=== PATIENT | male | born 1935 | race Caucasian/White ===

== ENCOUNTER 2016-07-02 23:08 | Inpatient (IN) | payer MEDICARE, OTHER ==
--- NOTE | ~2016-07-02 | DS ---
Discharge Summary [facility] [address] [facility] [place] [address] NAME: LOURDES YODER : 37 STATUS : DIS IN PAT#: [id number] AGE: 81 ADM/REG DATE : 07/03/16 MR#: [id number] REPORT SERV DATE: 07/09/16 DICTATED BY: JAYESH GRIFFIN DATE: 07/08/16 REPORT STATUS : Draft TRANSCRIBED BY: MODJayme DATE: 07/08/16 ADMISSION DATE: 07/03/2016 DISCHARGE DATE: 07/08/2016 DISCHARGE DIAGNOSES: 1. Left upper lobe lung mass, most likely stage III lung cancer. 2. Myeloproliferative syndrome, followed by Dr. Maldonado Benson. 3. Advanced chronic obstructive pulmonary disease that is O2 dependent. 4. Hypertension. 5. Benign prostatic hypertrophy. 6. Anxiety. 7. Chronic pain syndrome. 8. History of prior cerebrovascular accident. 9. Chronic hypoxic and hypercapnic respiratory failure, currently stable. CONSULTANTS DURING THIS HOSPITALIZATION: Dr. Yasmani Curtis of Pulmonology. INVASIVE PROCEDURES DONE DURING THIS HOSPITALIZATION: None. BRIEF HISTORY OF PRESENT ILLNESS: The patient is an 81-year-old white male with chronic comorbidities, presented with congestion, shortness of breath, wheezing, and cough, so he was admitted. For detailed history and physical exam, please see note dictated by Dr. Giovanni Bryant on 07/03/2016. HOSPITAL COURSE: This patient was admitted from the emergency room because on a CTA due to his shortness of breath, it revealed that he had a right upper lobe mass. He was given aggressive nebulizing treatment. Initially, it was thought that he had pneumonia, so he was given IV antibiotics. Blood cultures remained negative. He was initially also on IV steroids and those were discontinued. Dr. Curtis saw the patient in consultation and discussed with the patient that this may be lung cancer. Initially, the patient decided that he wanted to have his bronchoscopy done, but after discussing further with the patient and the fact that he may be on a ventilator post bronchoscopy and it will be difficult to wean him because of his advanced COPD; plus, if this was lung cancer, he would not be a candidate for any other aggressive therapy except targeted therapies by oral medications. The patient understood and agreed that he did not want to pursue further workup for his lung mass. At that time, it was decided that he could go home with hospice. The patient and met with hospice, and based on hospice philosophy, it was thought that the patient would not be able to be treated for his myeloproliferative syndrome as well. The patient decided against going home with hospice and said he would call them when he needed them. He is going home today with home O2, home health care, and physical therapy and continuing with other medical treatment for his other comorbidities. I have discussed at length with the patient and the at the bedside that hospice could be asked to see him at any point when the patient and family decides. Otherwise, he has remained stable and is being discharged in stable condition. DISCHARGE DISPOSITION: Home. Discharge Summary [id number] [place]. [address] NAME: LOURDES YODER : 37 STATUS : DIS IN PAT#: [id number] AGE: 81 ADM/REG DATE : 07/03/16 MR#: [id number] REPORT SERV DATE: 07/09/16 DICTATED BY: JAYESH GRIFFIN DATE: 07/08/16 REPORT STATUS : Draft TRANSCRIBED BY: NATE DATE: 07/08/16 DISCHARGE ACTIVITY: As tolerated. DISCHARGE DIET: Low-sodium diet. DISCHARGE MEDICATIONS: Norvasc 5 mg p.o. twice daily, coenzyme Q10 of 100 mg once every morning, Lexapro 20 mg once daily, Flonase two sprays each nostril once daily, Claritin 10 mg p.o. once daily, multivitamins one tablet p.o. daily, fish oil 100 mg p.o. daily, Flomax 0.4 mg p.o. every morning, Spiriva one capsule inhalation once daily, trazodone 50 to 100 mg p.o. once at bedtime, Klonopin 0.5 mg to 1 mg at bedtime p.r.n. for anxiety and as needed, albuterol one neb p.r.n. for shortness of breath, Symbicort 160/4.5 two puffs twice daily, hydrocodone 10/325 one tablet four times daily p.r.n. for breakthrough pain, and Opana ER 15 mg p.o. every morning. DISCHARGE FOLLOWUP: With Dr. Francesca Hatfield as scheduled previously. With Dr. Rosa Maria Ridley as needed. More than 30 minutes spent planning this patient's discharge, reconciling medications, writing prescriptions, discussing hospital care, follow up with the patient and the at the bedside, and documenting this discharge. FABBY/NATE Jayesh Griffin M.D. / [id number] CC: Jose Wilson M.D. Yune-gill Jeong, M.D.
--- NOTE | ~2016-07-02 | CN ---
Consultation Report [facility] [address] [place]. [address] NAME: LOURDES PUCKETT : 37 STATUS : ADM IN PAT#: [id number] AGE: 81 ADM/REG DATE : 07/03/16 MR#: [id number] REPORT SERV DATE: 07/03/16 DICTATED BY: DOUGLAS VIZCARRA DATE: 07/03/16 REPORT STATUS : Draft TRANSCRIBED BY: MODL DATE: 07/03/16 CONSULTATION DATE OF CONSULTATION: 07/03/2016 CHIEF COMPLAINT: Dyspnea and abnormal CT findings. HISTORY OF PRESENT ILLNESS: Mr. Lourdes Puckett is a cachectic-appearing 81-year-old white male with a past medical history significant for end-stage COPD, chronic respiratory failure and tobacco dependency, who presented to [facility] Emergency Room with complaints of worsening shortness of breath of two to three days' duration. It should be noted that Mr. Puckett was hospitalized as recently as 01/2016 when he was treated for an exacerbation of COPD as well as pneumonia. The patient has done fairly well as an outpatient given his advanced age and significant pulmonary comorbidities. Mr. Puckett is followed for his outpatient pulmonary needs by Dr. Hatfield. He is on a pulmonary regimen of albuterol, Symbicort, and Spiriva of which he is compliant. Unfortunately, the patient continues to smoke cigarettes. He has smoked approximately a pack a day for roughly 70 years. He does have some symptomatology consistent with some degree of sleep apnea. He has never undergone formal assessment for this. He is on chronic oxygen supplementation at 2 to 3 L. He describes his exercise tolerance as being quite limited, being only able to ambulate around the house before experiencing some degree of shortness of breath. Again, the patient was hospitalized as recently as January when he was treated for a pneumonia and exacerbation of COPD. He was seen by Dr. Heather Victor during this hospitalization. He did have issues with hypercarbia during this time and was eventually transferred to the [facility], where he received some BiPAP therapy. He did eventually improve and transition to home. He did not follow up with his outpatient exploration engineer. More recently, the patient began to develop worsening shortness of breath and eventually presented to [facility] Emergency Room for further assessment. Upon arrival, the patient was found to be normotensive and afebrile. He had oxygen saturation of 94% on 3 L. Initial blood work revealed a white blood cell count of 14,000. His BNP was elevated at 211.9. Creatinine was within normal limits. He did eventually undergo a CTA of the chest, which revealed an irregular mass within the left upper lobe, measuring at its largest dimension 2.6 mm. Multiple smaller irregular nodules were appreciated as well. For the aforementioned reasons, he has been referred to the Pulmonary Service for further assessment. Currently, the patient's main pulmonary complaint is shortness of breath. It is worse on exertion and relieved by rest. He denies any worsening wheezing in his chest. He is not hemoptysizing. He has had recent pneumonia. The patient currently denies murmurs, angina, or palpitations. He denies any orthopnea or Consultation Report [address] [address] NAME: LOURDES PUCKETT : 37 STATUS : ADM IN [facility]#: [id number] AGE: 81 ADM/REG DATE : 07/03/16 MR#: [id number] REPORT SERV DATE: 07/03/16 DICTATED BY: DOUGLAS VIZCARRA DATE: 07/03/16 REPORT STATUS : Draft TRANSCRIBED BY: NATE DATE: 07/03/16 paroxysmal nocturnal dyspnea. He denies any lower extremity edema. The patient has had about a 5-pound weight loss over the last few weeks. He has had decreased appetite. He has had occasional night sweats. He currently denies any fever, chills, nausea, vomiting, chest pain, abdominal pain, or edema. PAST MEDICAL HISTORY: 1. End-stage COPD with reported FEV1 of 19% of predicted. 2. Chronic hypoxemic respiratory failure. 3. Previous pneumonia. 4. Thrombocytosis. 5. Restless legs syndrome. 6. Diabetes mellitus. 7. Hypertension. PAST SURGICAL HISTORY: 1. Back surgery. 2. Vasectomy. 3. Phimosis with subsequent circumcision. FAMILY HISTORY: The patient denies family history of lung disease. SOCIAL HISTORY: The patient is , with his currently at bedside. He previously worked as a gas truck driver. He also worked where he was exposed to excessive amounts of formaldehyde. Tobacco/alcohol: As previously mentioned, the patient continues to smoke cigarettes. He has smoked approximately a pack a day for a period of 70 years. He denies any recent alcohol or illicit drug use. MEDICATIONS: 1. Albuterol. 2. Amlodipine 5 mg. 3. Symbicort. 4. Klonopin 0.5 mg. 5. Lexapro 20 mg. 6. Hydrocodone 10/325. 7. Loratadine 10 mg. 8. Tamsulosin 0.4 mg. 9. Spiriva. 10.Trazodone 50 mg. ALLERGIES: THE PATIENT HAS KNOWN ALLERGY TO AZITHROMYCIN. REVIEW OF SYSTEMS: Consultation Report [address] [address] NAME: LOURDES PUCKETT : 37 STATUS : ADM IN PAT#: [id number] AGE: 81 ADM/REG DATE : 07/03/16 MR#: [id number] REPORT SERV DATE: 07/03/16 DICTATED BY: DOUGLAS VIZCARRA DATE: 07/03/16 REPORT STATUS : Draft TRANSCRIBED BY: NATE DATE: 07/03/16 A complete review of systems was performed with the pertinent positives and negatives contained within the body of the HPI. PHYSICAL EXAMINATION: VITAL SIGNS: Blood pressure is 143/64, heart rate is 89, T-max is 97.7, respiratory rate is 20, SpO2 is 95% on 3 L nasal cannula. GENERAL: The patient is a pleasant, well-nourished/well-developed male, who is not currently exhibiting any signs of acute distress. SKIN: Skin with appropriate texture and turgor. No rashes, lesions, or ulcers. Nails are clear without cyanosis or clubbing. HEENT: Head: Skull is normocephalic/atraumatic. Facies symmetric. No masses or lesions. Eyes: Sclera anicteric. Conjunctiva pink without exudates. Extraocular movements intact. Pupils are equal, round, reactive to light. Ears: Auricles and tragus without pain to palpation. Hearing is grossly intact. Nose: Bilateral nasal patency. Sinuses without tenderness upon palpation. Throat: Poor dentition and poor repair. Lips, oral mucosa, tongue, palate, and pharynx pink and moist without lesions. Uvula rises equally on phonation. Tongue midline without deviation. NECK: Neck supple. Trachea midline. No cervical lymphadenopathy appreciated. THORAX/LUNGS: Thorax is symmetric with equal chest rise. Very diminished breath sounds throughout. CARDIOVASCULAR: Regular rate and rhythm. No murmurs, rubs, or gallops. Anterior chest without thrills, heaves, or lifts. ABDOMEN: Soft. Non-distended, non-tender. Active bowel sounds in all four quadrants. No hepatosplenomegaly noted. PERIPHERAL VASCULAR: No edema. No varicosities, stasis changes, open sores, ulcerations, or phlebitis. 2+ pulses in radial and dorsalis pedis. MUSCULOSKELETAL: Full AROM and PROM in all joints. No evidence of erythema, deformity, or crepitus. NEUROLOGIC: CN II - XII grossly intact. Good muscle bulk and tone bilaterally. Strength 5/5 throughout. PSYCHIATRIC: Patient demonstrates good judgment and insight. Pt is A&O x 3. ACCESSORY DATA: Reveals a white blood cell count of 11,600; hemoglobin and hematocrit are 8.4 and 27.7; platelets are 1109. CT scan reveals no evidence of PE. There is an irregular mass within the left upper lobe. There are multiple additional smaller irregular nodules scattered within the left upper lobe. Small bilateral pleural effusions are appreciated. Mediastinal lymphadenopathy is noted as well. IMPRESSION: 1. Left upper lobe infiltrate/mass, measuring 2.6 mm, concerning for malignancy. 2. Pulmonary nodules. 3. End-stage chronic obstructive pulmonary disease with mild exacerbation. 4. Acute on chronic hypoxemic-hypercapnic respiratory failure. 5. Tobacco dependency/complicated. Consultation Report [address] [address] NAME: LOURDES PUCKETT : 37 STATUS : ADM IN [facility]#: [id number] AGE: 81 ADM/REG DATE : 07/03/16 MR#: [id number] REPORT SERV DATE: 07/03/16 DICTATED BY: DOUGLAS VIZCARRA DATE: 07/03/16 REPORT STATUS : Draft TRANSCRIBED BY: MODL DATE: 07/03/16 6. Bilateral pleural effusions. 7. DNR. PLAN: 1. At this time, the patient has already eaten today. We will tentatively plan for bronchoscopy for more diagnostic information. We recommend continuing on Levaquin at this time. We will check a sputum for Gram stain and culture. 2. Again, the infiltrate and pulmonary nodules are concerning for malignancy. At this time, he would be considered a poor candidate for invasive treatments. I did speak with the family about this. They do wish to proceed with biopsy. 3. In regard to the patient's exacerbation of COPD, we will adjust his steroids accordingly and place him on a full armamentarium of nebulized medications. 4. In regard to the patient's acute on chronic hypoxemic-hypercapnic respiratory failure, we will continue to support him on BiPAP at hour of sleep. Before discharge, we will assess his willingness or need for noninvasive positive pressure ventilation. 5. In regard to the patient's continuing tobacco abuse, I spent greater than 10 minutes discussing the necessity of smoking cessation. We will revisit this throughout his hospitalization. 6. In regard to the patient's bilateral pleural effusions, there seems to be some chronic nature to these. We will watch these moving forward. 7. I did speak at length about the patient's code status, and he does not wish aggressive resuscitative efforts. We will reflect this within the chart and make his status DNR. The aforementioned impression and plan has been discussed with Dr. Cooper, who will follow further recommendations. We thank you for this consult and look forward to participating in the care of Mr. Lourdes Puckett. GBS/MODL Douglas Vizcarra PA-C / [id number] CC: Jose Grover M.D.
--- NOTE | ~2016-07-02 | HP ---
History And Physical [id number] [place]. [address] NAME: LOURDES PUCKETT : 37 STATUS : REG ER PAT#: [id number] AGE: 81 ADM/REG DATE : 07/02/16 MR#: [id number] REPORT SERV DATE: 07/03/16 DICTATED BY: MARGE VILLELA DATE: 07/03/16 REPORT STATUS : Draft TRANSCRIBED BY: MODL DATE: 07/03/16 DATE OF ADMISSION: 07/02/2016 POINT OF ENTRY: [facility] Emergency Department. PRIMARY ONCOLOGIST: Quinn Benson M.D. PRIMARY EMBOSSOGRAPH OPERATOR: James Hatfield M.D. CHIEF COMPLAINT: Shortness of breath and cough. HISTORY OF PRESENT ILLNESS: Mr. Puckett is an 81-year-old gentleman with history of COPD on chronic 3 L by nasal cannula, myeloproliferative disorder followed by Dr. Benson, chronic pain on chronic narcotics as well as hypertension, who presents to the emergency room today with a two-day history of progressive worsening shortness of breath with associated cough, sputum production, and wheezing. states that his breathing has been steadily worsening for the past week; however, it acutely worsened on Wednesday after he received two units of packed red blood cell transfusion at [facility]. His symptoms primarily of increased cough with sputum production with associated chest congestion and wheezing. He denies any recent fevers, night sweats, chills, chest pain, palpitations, abdominal pain, nausea, vomiting, diarrhea, constipation, dysuria, melena, or hematochezia. Initial evaluation in the emergency department notable for a CTA of the chest that was negative for PE or pneumonia, but is concerning for a left upper lobe and lingular mass concerning for neoplasm. ABG showed acute on chronic hypercarbic and hypoxic respiratory failure, the patient was placed on BiPAP and admitted to the Hospitalist Service. The patient recently discontinued his Eliquis per the direction of Dr. Benson for a history of pulmonary embolism in January 2016. PREVIOUS MEDICAL HISTORY: 1. COPD, on 3 L nasal cannula. 2. Chronic hypercarbic and hypoxic respiratory failure. 3. Hypertension. 4. Recent PE, no longer on anticoagulation. 5. Myeloproliferative disorder with chronic leukocytosis and thrombocytosis. 6. Chronic iron-deficiency anemia. 7. History of colonic polyps. 8. Chronic pain on chronic narcotics. 9. History of prior cerebrovascular accident. 10.Restless legs syndrome. SURGICAL HISTORY: History And Physical [address] [address] NAME: LOURDES PUCKETT : 37 STATUS : REG ER PAT#: [id number] AGE: 81 ADM/REG DATE : 07/02/16 MR#: [id number] REPORT SERV DATE: 07/03/16 DICTATED BY: MARGE VILLELA DATE: 07/03/16 REPORT STATUS : Draft TRANSCRIBED BY: NATE DATE: 07/03/16 1. Vasectomy. 2. Circumcision. 3. Back surgery. ALLERGIES: TO WELLBUTRIN. HOME MEDICATIONS: 1. Albuterol one nebulization p.r.n. 2. Amlodipine 5 mg b.i.d. 3. Symbicort two puffs inhalation b.i.d. 4. Klonopin 0.5 mg to 1 mg q.h.s. 5. Klonopin 0.5 mg daily. 6. CoQ10 100 mg daily. 7. Lexapro 20 mg daily. 8. Flonase nasal spray two sprays nasal daily. 9. [place] 10/325 mg one tablet q.i.d. 10.Loratadine 10 mg daily. 11.Multivitamin one tab daily. 12.[place]-3 fatty acid. 13.Fish oil 1000 mg daily. 14.Opana ER 15 mg daily. 15.Flomax 0.4 mg daily. 16.Spiriva one cap inhalation daily. 17.Trazodone 100 mg q.h.s. SOCIAL HISTORY: He denies any tobacco, alcohol, or illicits. FAMILY MEDICAL HISTORY: Notable for diabetes and coronary artery disease as well as father with history of stroke. LABS AND IMAGIN. White count 14.2, hemoglobin is 8.7, hematocrit 29.5, and platelet count is 1,123,000. 2. Sodium is 144, potassium 4.1, chloride 108, carbon dioxide 39, BUN 14, creatinine 0.67, glucose is 114, calcium is 8.9, protein is 7.3, albumin is 2.8, bilirubin is 0.2, ALT is 18, AST 16, and alkaline phosphatase is 60. 3. Troponin less than 0.02. BNP is 212. 4. ABG; pH is 7.25, pCO2 is 87, PO2 is 89, bicarb is 38, and saturating 96% on 4 L by nasal cannula. 5. EKG per my review shows normal sinus rhythm with left axis deviation, otherwise, no evidence of any acute ischemia or infarction. 6. Chest x-ray per my review shows no acute cardiopulmonary abnormality. It does show COPD type changes with flattened diaphragms and hyperinflation. 7. CTA of the chest is negative for PE, but does show a left upper lobe and lingular mass as well as evidence of metastatic lymphadenopathy. PHYSICAL EXAMINATION: VITAL SIGNS: Temperature is 98.3 degrees Fahrenheit, pulse is 93, respirations 24, History And Physical [id number] [place]. [address] NAME: LOURDES PUCKETT : 37 STATUS : REG ER PAT#: [id number] AGE: 81 ADM/REG DATE : 07/02/16 MR#: [id number] REPORT SERV DATE: 07/03/16 DICTATED BY: MARGE VILLELA DATE: 07/03/16 REPORT STATUS : Draft TRANSCRIBED BY: NATE DATE: 07/03/16 saturating 94% on 4 L nasal cannula, and blood pressure 114/56. GENERAL: The patient is awake and alert, in no acute distress. Resting comfortably in bed. He is a chronically ill-appearing, elderly male. Currently on BiPAP, is at bedside. HEENT: Atraumatic and normocephalic. Moist mucous membranes. Pupils are equal, round, reactive to light and accommodation. Extraocular eye movements intact. No scleral icterus. NECK: No jugular venous distention or carotid bruits. CARDIAC: Regular rate and rhythm. No murmurs, rubs, or gallops. Normal S1, S2. LUNGS: He is on BiPAP in no respiratory distress. Does have some inspiratory crackles at bilateral bases about alf up the lung field with some mild wheezes as well. ABDOMEN: Soft, nontender, and nondistended with good bowel sounds. No rebound, guarding, or rigidity. EXTREMITIES: Warm and well perfused. No cyanosis or clubbing or edema. SKIN: Warm and dry. PSYCH: Affect appropriate. NEURO: Alert and oriented x3. Cranial nerves 2 through 12 are grossly intact. Speech is normal. Gait is not assessed. ASSESSMENT AND PLAN: Mr. Puckett is an 81-year-old male with a history of COPD as well as chronic hypercarbic and hypoxic respiratory failure, who presents with worsening shortness of breath, cough, and sputum production. PROBLEM LIST: 1. Acute COPD exacerbation. 2. Acute on chronic hypercarbic and hypoxic respiratory failure. 3. Left upper lobe lung mass. 4. Myeloproliferative disorder. PLAN: 1. Acute COPD exacerbation. We will treat with IV steroids, antibiotics as well as frequent bronchodilators. 2. Acute on chronic hypoxic and hypercarbic respiratory failure. We will continue BiPAP overnight, we will recheck an ABG here in a few hours to ensure that he is correcting his acid-base abnormality. Again aggressive pulmonary toilet with antibiotics, steroids, and bronchodilators. 3. Lung mass. CT of the chest concerning for a lingular and left upper lobe lung mass. We will consult the patient's primary oncologist, Dr. Benson, for assistance. We will likely need some type of biopsy. 4. Myeloproliferative disorder, per Dr. Benson. 5. History of PE. The patient is no longer on Eliquis. CT of the chest here is negative for PE. 6. Chronic pain on chronic narcotics. We will continue the patient's home medications, but hold for sedation. 7. DVT prophylaxis. Lovenox subcutaneous. CODE STATUS: The patient wishes to be full code. History And Physical [address] [address] NAME: LOURDES PUCKETT : 37 STATUS : REG PAT#: [id number] AGE: 81 ADM/REG DATE : 07/02/16 MR#: [id number] REPORT SERV DATE: 07/03/16 DICTATED BY: MARGE VILLELA DATE: 07/03/16 REPORT STATUS : Draft TRANSCRIBED BY: NATE DATE: 07/03/16 BRANDEN/NATE Marge Villela MD / [id number] CC: Rosa Maria Ridley M.D. MD James West M.D.
[2016-07-02 19:09] LABS: BASOPHILS 0.8 %; BASOPHILS ABSOLUTE 0.12 10/3/uL (0.0-0.16); EOSINOPHILS 1.7 %; EOSINOPHILS ABSOLUTE 0.24 10/3/uL (0.0-0.53); ER CBC TAT 0 Hrs 14 Mins; HEMOGLOBIN 8.7 g/dL (13.6-17.8); IMMATURE GRANULOCYTES 0.6 %; IMMATURE GRANULOCYTES ABSOLUTE 0.08 10/3/uL (0.0-0.11); LYMPHOCYTES 11.1 %; LYMPHOCYTES ABSOLUTE 1.58 10/3/uL (0.67-4.30); MEAN CORPUS HGB CONC 29.5 g/dL (32.0-36.0); MEAN PLATELET VOLUME 9.4 fL (9.2-13.0); MONOCYTES 6.5 %; MONOCYTES ABSOLUTE 0.93 10/3/uL (0.21-1.20); NEUTROPHILS 79.3 %; NEUTROPHILS ABSOLUTE 11.28 10/3/uL (2.02-8.40); NUCLEATED RED BLOOD CELLS 0.6 /100WBC (0-0); RBC DISTRIBUTION WIDTH 19.1 % (12.0-16.0); WHITE BLOOD CELLS 14.2 10/3/uL (4.5-10.5)
[2016-07-02 19:14] LABS: HEMATOCRIT 29.5 % (40.0-51.0); MANUAL DIFF NO %; MEAN CORPUSCULAR HEMOGLOB 29.4 pg (26.0-34.0); MEAN CORPUSCULAR VOLUME 99.7 fL (80-100); PLATELET COUNT 1123 10/3/uL (150-400); RED CELL COUNT 2.96 10/6/uL (4.7-6.1)
[2016-07-02 19:16] LABS: A/G RATIO 0.6 (0.7-1.9); ALBUMIN 2.8 G/DL (3.5-5.0); ALKALINE PHOSPHATASE 60 U/L (45-117); BUN (BLOOD UREA NITROGEN) 14 MG/DL (6-23); CALCIUM, SERUM 8.9 MG/DL (8.5-10.4); CHLORIDE, SERUM 101 MMOL/L (96-112); CO2 (CARBON DIOXIDE) 39 MMOL/L (24-34); CREATININE 0.67 MG/DL (0.70-1.30); GFR AFRICAN AMERICAN 105 ML/MIN (>=60); GFR NON AFRICAN AMERICAN 91 ML/MIN (>=60); GLOBULIN 4.4 G/DL (2.5-4.1); GLUCOSE, SERUM 114 MG/DL (60-99); POTASSIUM, SERUM 4.1 MMOL/L (3.5-5.3); SGOT(AST) 16 U/L (5-40); SGPT(ALT) 18 U/L (5-65); SODIUM, SERUM 144 MMOL/L (135-148); TOTAL BILIRUBIN 0.2 MG/DL (0-1.2); TOTAL PROTEIN 7.2 G/DL (6.0-8.5)
[2016-07-02 19:38] LABS: ANISOCYTOSIS 1+ (5-10/OIF) (0-5/OIF); POLYCHROMASIA 1+ (2-5/OIF) (0-1/OIF)
[2016-07-02 19:39] LABS: BASOPHILIC STIPPLING 1+ (2-5/OIF) (0-1/OIF)
[2016-07-02 21:26] LABS: BE (BASE EXCESS) 8.6 MEQ/L (0 +/- 2.5); CARBOXYHEMOGLOBIN 1.7 % (0-3); DEVICE NC; HCO3 (ACTUAL BICARBONATE) 37.7 MEQ/L (23-27); HEMOBLOGIN CONTENT 8.9 G/DL (14-18); INSTRUMENT SERIAL # 8087; METHEMOGLOBIN 0.6 % (0-3); O2 CONTENT 11.9 VOL% (18-24); OPERATOR ID 17537; PCO2 (CO2 TENSION) 87 MMHG (35-45); PO2 (O2 TENSION) 89 MMHG (79-93); SAMPLE Arterial; pH 7.25 (7.37-7.43)
[2016-07-02 22:04] LABS: TROPONIN I <0.02 NG/ML (<0.05)
[~2016-07-02 23:08] MED LIST: ADVAIR250 INH; AMB10 PO; AMB5 PO; ASAB; ASAB PO; CLARIT10 PO; DOLOPHINE5 MG PO; DOX10 PO; ELIQUIS 5 MG TAB5 MG PO; FLOMAX4 PO; FLONASE NAS; HALF81 PO; HYDREA PO; KDUR20 PO; KLONO1; KLONO1 PO; KLONO5 PO; LEVAQUIN750 MG PO; LEXAPRO10 PO; LIPITOR80 MG PO; LORTAB10 PO; MEGA RED KRILL OIL PO; MELA3 PO; METHATAB5B PO; MULTIPLE VIT PO; MULTIVITAMI1 PO; NASONEX NAS; NICODERM C14 MG/24 H TOP; NICORETTE ST2 MG; NORCO1 TAB PO; NORV5 PO; OPANA ER15 MG PO; P10 PO; P20 PO; PLAVIX PO; PROAIR HFA INH; PROTONIX PO; PROVENTSOL INH; QVAR40 MC1 IN; RESUME HOME MEDS; SINGULAIR1 PO; SPIRIVA INH; SYMBICORT 160/41 INH INH; TAMIFLU PO; TRAZ100 PO; TRAZ50 PO; ZITHROMAX500 MG PO; [UNRECOGNIZED DRUG - OTHER] PO
[2016-07-02] MEDS ORDERED: SYMBICORT 160/41 INH INH (23:19)
[2016-07-02] MEDS ORDERED: NORV5 PO (23:19)
[2016-07-02] MEDS ORDERED: KLONO5 PO ×2 (23:22→23:23)
[2016-07-02] MEDS ORDERED: LEXAPRO20 PO (23:23)
[2016-07-02] MEDS ORDERED: CO Q-10100 MG PO (23:23)
[2016-07-02] MEDS ORDERED: FLONASE NAS (23:23)
[2016-07-02] MEDS ORDERED: CLARIT10 PO (23:25)
[2016-07-02] MEDS ORDERED: MULTIVIT/MIN PO (23:25)
[2016-07-02] MEDS ORDERED: NORCO1 TAB PO (23:25)
[2016-07-02] MEDS ORDERED: FISH-EPA1000 MG PO (23:26)
[2016-07-02] MEDS ORDERED: FLOMAX4 PO (23:27)
[2016-07-02] MEDS ORDERED: ALBUTEROL0.083 % INH (23:27)
[2016-07-02] MEDS ORDERED: OPANA ER15 MG PO (23:27)
[2016-07-02] MEDS ORDERED: TRAZ50 PO (23:28)
[2016-07-02] MEDS ORDERED: SPIRIVA INH (23:28)
[2016-07-03 01:23] LABS: CARBOXYHEMOGLOBIN 1.5 % (0-3); HCO3 (ACTUAL BICARBONATE) 38.1 MEQ/L (23-27); INSTRUMENT SERIAL # 8087; METHEMOGLOBIN 0.6 % (0-3); O2 CONTENT 11.6 VOL% (18-24); OPERATOR ID 17537; PCO2 (CO2 TENSION) 68 MMHG (35-45); PO2 (O2 TENSION) 65 MMHG (79-93); SAMPLE Arterial; pH 7.37 (7.37-7.43)
[2016-07-03 01:24] LABS: BIPAP 15/8 cm.H2O
[2016-07-03 05:32] LABS: BASOPHILS 0.3 %; BASOPHILS ABSOLUTE 0.04 10/3/uL (0.0-0.16); EOSINOPHILS 0.2 %; EOSINOPHILS ABSOLUTE 0.02 10/3/uL (0.0-0.53); HEMATOCRIT 27.7 % (40.0-51.0); HEMOGLOBIN 8.4 g/dL (13.6-17.8); IMMATURE GRANULOCYTES 0.2 %; IMMATURE GRANULOCYTES ABSOLUTE 0.02 10/3/uL (0.0-0.11); LYMPHOCYTES 5.9 %; LYMPHOCYTES ABSOLUTE 0.69 10/3/uL (0.67-4.30); MEAN CORPUS HGB CONC 30.3 g/dL (32.0-36.0); MEAN CORPUSCULAR HEMOGLOB 29.3 pg (26.0-34.0); MEAN PLATELET VOLUME 9.7 fL (9.2-13.0); MONOCYTES 0.6 %; MONOCYTES ABSOLUTE 0.07 10/3/uL (0.21-1.20); NEUTROPHILS 92.8 %; NEUTROPHILS ABSOLUTE 10.79 10/3/uL (2.02-8.40); RBC DISTRIBUTION WIDTH 18.6 % (12.0-16.0); RED CELL COUNT 2.87 10/6/uL (4.7-6.1); WHITE BLOOD CELLS 11.6 10/3/uL (4.5-10.5)
[2016-07-03 05:34] LABS: BUN (BLOOD UREA NITROGEN) 17 MG/DL (6-23); CALCIUM, SERUM 8.8 MG/DL (8.5-10.4); CHLORIDE, SERUM 100 MMOL/L (96-112); CO2 (CARBON DIOXIDE) 35 MMOL/L (24-34); CREATININE 0.65 MG/DL (0.70-1.30); GFR AFRICAN AMERICAN 106 ML/MIN (>=60); GFR NON AFRICAN AMERICAN 92 ML/MIN (>=60); POTASSIUM, SERUM 4.5 MMOL/L (3.5-5.3); SODIUM, SERUM 141 MMOL/L (135-148)
[2016-07-03 05:36] LABS: GLUCOSE, SERUM 201 MG/DL (60-99)
[2016-07-03 05:37] LABS: MANUAL DIFF NO %; MEAN CORPUSCULAR VOLUME 96.5 fL (80-100); PLATELET COUNT 1109 10/3/uL (150-400)
[2016-07-03 05:57] LABS: ANISOCYTOSIS 1+ (5-10/OIF) (0-5/OIF); GIANT PLATELET OCC; STOMATOCYTES 1+ (3-10/OIF) (0-2/OIF)
[2016-07-03 07:10] LABS: ASCORBIC ACID (UR NOT ORDER) 20 (NEG); BILIRUBIN, URINE NEGATIVE (NEG); KETONE, URINE NEGATIVE (NEG); LEUKOCYTE ESTERASE(NOT OR NEG (NEG); WBC (NOT ORDERED) (RFLEX) 1 (0-5)
[2016-07-03 10:29] LABS: PROCALCITONIN 9.27 ng/mL (<0.5)
[2016-07-03 14:34] LABS: FERRITIN 57 NG/ML (26-388); FOLATE 28.3 NG/ML (>5.2); FREE T4 1.23 NG/DL (0.76-1.46); IRON BINDING CAPACITY 212 MCG/DL (250-450)
[2016-07-04 07:19] LABS: A/G RATIO 0.7 (0.7-1.9); ALBUMIN 2.6 G/DL (3.5-5.0); ALKALINE PHOSPHATASE 47 U/L (45-117); BUN (BLOOD UREA NITROGEN) 19 MG/DL (6-23); CALCIUM, SERUM 8.5 MG/DL (8.5-10.4); CHLORIDE, SERUM 107 MMOL/L (96-112); CO2 (CARBON DIOXIDE) 32 MMOL/L (24-34); CREATININE 0.71 MG/DL (0.70-1.30); GFR AFRICAN AMERICAN 103 ML/MIN (>=60); GFR NON AFRICAN AMERICAN 89 ML/MIN (>=60); GLOBULIN 3.7 G/DL (2.5-4.1); GLUCOSE, SERUM 112 MG/DL (60-99); PHOSPHORUS, SERUM 2.2 MG/DL (2.5-4.5); POTASSIUM, SERUM 3.6 MMOL/L (3.5-5.3); SGOT(AST) 17 U/L (5-40); SGPT(ALT) 14 U/L (5-65); SODIUM, SERUM 145 MMOL/L (135-148); TOTAL BILIRUBIN 0.2 MG/DL (0-1.2); TOTAL PROTEIN 6.3 G/DL (6.0-8.5)
[2016-07-04 07:27] LABS: BASOPHILS 0.3 %; BASOPHILS ABSOLUTE 0.03 10/3/uL (0.0-0.16); EOSINOPHILS 1.1 %; EOSINOPHILS ABSOLUTE 0.12 10/3/uL (0.0-0.53); HEMATOCRIT 27.6 % (40.0-51.0); HEMOGLOBIN 8.4 g/dL (13.6-17.8); IMMATURE GRANULOCYTES 0.2 %; IMMATURE GRANULOCYTES ABSOLUTE 0.02 10/3/uL (0.0-0.11); LYMPHOCYTES 14.8 %; LYMPHOCYTES ABSOLUTE 1.55 10/3/uL (0.67-4.30); MEAN CORPUS HGB CONC 30.4 g/dL (32.0-36.0); MEAN CORPUSCULAR VOLUME 95.2 fL (80-100); MEAN PLATELET VOLUME 9.6 fL (9.2-13.0); MONOCYTES 9.3 %; MONOCYTES ABSOLUTE 0.97 10/3/uL (0.21-1.20); NEUTROPHILS 74.3 %; NEUTROPHILS ABSOLUTE 7.76 10/3/uL (2.02-8.40); RBC DISTRIBUTION WIDTH 17.4 % (12.0-16.0); WHITE BLOOD CELLS 10.5 10/3/uL (4.5-10.5)
[2016-07-04 07:30] LABS: PLATELET COUNT 1244 10/3/uL (150-400)
[2016-07-04 07:31] LABS: MANUAL DIFF NO %
[2016-07-04 08:09] LABS: GIANT PLATELET OCC; POLYCHROMASIA 1+ (2-5/OIF) (0-1/OIF); TARGET CELLS OCC (1-2/OIF) (0-1/OIF)
[2016-07-04 08:10] LABS: ANISOCYTOSIS 1+ (5-10/OIF) (0-5/OIF); TEARDROP SHAPED RBCS OCC (0-2/OIF)
[2016-07-04 08:12] LABS: MACROCYTES 1+ (5-10/OIF) (0-5/OIF); MICROCYTES 1+ (5-10/OIF) (0-5/OIF)
[2016-07-05 06:52] LABS: BASOPHILS 0.2 %; BASOPHILS ABSOLUTE 0.02 10/3/uL (0.0-0.16); EOSINOPHILS 0.5 %; EOSINOPHILS ABSOLUTE 0.06 10/3/uL (0.0-0.53); HEMATOCRIT 29.7 % (40.0-51.0); HEMOGLOBIN 8.9 g/dL (13.6-17.8); IMMATURE GRANULOCYTES 0.3 %; IMMATURE GRANULOCYTES ABSOLUTE 0.04 10/3/uL (0.0-0.11); LYMPHOCYTES 14.5 %; LYMPHOCYTES ABSOLUTE 1.66 10/3/uL (0.67-4.30); MEAN CORPUSCULAR HEMOGLOB 28.9 pg (26.0-34.0); MEAN CORPUSCULAR VOLUME 96.4 fL (80-100); MEAN PLATELET VOLUME 9.1 fL (9.2-13.0); MONOCYTES 6.9 %; MONOCYTES ABSOLUTE 0.79 10/3/uL (0.21-1.20); NEUTROPHILS 77.6 %; NEUTROPHILS ABSOLUTE 8.89 10/3/uL (2.02-8.40); PLATELET COUNT 1201 10/3/uL (150-400); RBC DISTRIBUTION WIDTH 16.8 % (12.0-16.0); RED CELL COUNT 3.08 10/6/uL (4.7-6.1); WHITE BLOOD CELLS 11.5 10/3/uL (4.5-10.5)
[2016-07-05 06:53] LABS: MANUAL DIFF NO %
[2016-07-05 07:03] LABS: BUN (BLOOD UREA NITROGEN) 18 MG/DL (6-23); CALCIUM, SERUM 8.9 MG/DL (8.5-10.4); CHLORIDE, SERUM 106 MMOL/L (96-112); CO2 (CARBON DIOXIDE) 33 MMOL/L (24-34); CREATININE 0.65 MG/DL (0.70-1.30); GFR AFRICAN AMERICAN 106 ML/MIN (>=60); GFR NON AFRICAN AMERICAN 92 ML/MIN (>=60); GLUCOSE, SERUM 109 MG/DL (60-99); POTASSIUM, SERUM 4.1 MMOL/L (3.5-5.3); SODIUM, SERUM 145 MMOL/L (135-148)
[2016-07-05 07:53] LABS: POIKILOCYTOSIS 1+ (5-10/OIF) (0-5/OIF); SCHISTOCYTES OCC (0-2/OIF)
[2016-07-05 15:57] LABS: INTERNATIONAL NORMAL RATI 1.1 UNITS (-); PARTIAL THROMBO TIME 31.5 SEC (22.5-37.2)
[2016-07-06 04:16] LABS: BASOPHILS 0.2 %; BASOPHILS ABSOLUTE 0.03 10/3/uL (0.0-0.16); EOSINOPHILS 0.5 %; EOSINOPHILS ABSOLUTE 0.06 10/3/uL (0.0-0.53); HEMOGLOBIN 9.3 g/dL (13.6-17.8); IMMATURE GRANULOCYTES 0.3 %; IMMATURE GRANULOCYTES ABSOLUTE 0.04 10/3/uL (0.0-0.11); LYMPHOCYTES 12.3 %; LYMPHOCYTES ABSOLUTE 1.61 10/3/uL (0.67-4.30); MEAN CORPUSCULAR HEMOGLOB 29.4 pg (26.0-34.0); MEAN CORPUSCULAR VOLUME 94.9 fL (80-100); MEAN PLATELET VOLUME 9.7 fL (9.2-13.0); MONOCYTES 8.2 %; MONOCYTES ABSOLUTE 1.07 10/3/uL (0.21-1.20); NEUTROPHILS 78.5 %; NEUTROPHILS ABSOLUTE 10.31 10/3/uL (2.02-8.40); RBC DISTRIBUTION WIDTH 16.7 % (12.0-16.0); RED CELL COUNT 3.16 10/6/uL (4.7-6.1); WHITE BLOOD CELLS 13.1 10/3/uL (4.5-10.5)
[2016-07-06 04:18] LABS: MANUAL DIFF NO %; PLATELET COUNT 1232 10/3/uL (150-400)
[2016-07-06 04:21] LABS: CALCIUM, SERUM 8.9 MG/DL (8.5-10.4); CHLORIDE, SERUM 107 MMOL/L (96-112); CO2 (CARBON DIOXIDE) 33 MMOL/L (24-34); CREATININE 0.83 MG/DL (0.70-1.30); GFR AFRICAN AMERICAN 96 ML/MIN (>=60); GFR NON AFRICAN AMERICAN 83 ML/MIN (>=60); GLUCOSE, SERUM 103 MG/DL (60-99); POTASSIUM, SERUM 4.2 MMOL/L (3.5-5.3); SODIUM, SERUM 145 MMOL/L (135-148)
[2016-07-06 04:24] LABS: BUN (BLOOD UREA NITROGEN) 23 MG/DL (6-23)
[2016-07-06 04:39] LABS: ANISOCYTOSIS 1+ (5-10/OIF) (0-5/OIF); RBC MORPHOLOGY ABN (NORMAL)
[2016-07-06 05:43] LABS: PROCALCITONIN 11.95 ng/mL (<0.5)
== END 2016-07-08 14:56 | disposition home health service (06) | DRG 180 ==
LOC: ER 23:08 → IMCU 07-03 01:36 → 6NO 07-03 01:49
PROVIDERS: Emergency Medicine; Internal Medicine
PROC: 5A09357 Assistance with Respiratory Ventilation, Less than 24 Consecutive Hours, Continuous Positive Airway Pressure (ICD-10-PCS; principal; 2016-07-03)
DX: C34.12 Malignant neoplasm of upper lobe, left bronchus or lung (principal); J96.21 Acute and chronic respiratory failure with hypoxia; J44.1 Chronic obstructive pulmonary disease with (acute) exacerbation; Z99.81 Dependence on supplemental oxygen; J90 Pleural effusion, not elsewhere classified; D46.9 Myelodysplastic syndrome, unspecified; J96.22 Acute and chronic respiratory failure with hypercapnia; N40.0 Benign prostatic hyperplasia without lower urinary tract symptoms; I10 Essential (primary) hypertension; F41.9 Anxiety disorder, unspecified; G89.4 Chronic pain syndrome; G25.81 Restless legs syndrome; Z87.01 Personal history of pneumonia (recurrent); F17.210 Nicotine dependence, cigarettes, uncomplicated; Z66 Do not resuscitate; Z86.010 Personal history of colon polyps; Z86.711 Personal history of pulmonary embolism; Z79.891 Long term (current) use of opiate analgesic; Z87.891 Personal history of nicotine dependence; Z53.9 Procedure and treatment not carried out, unspecified reason
CPT/HCPCS: 36415; 36600; 71010; 71020; 71275; 80048; 80053; 81001; 82150; 82607; 82728; 82746; 82805; 82962; 83550; 83735; 83880; 84100; 84145; 84439; 84484; 85025; 85610; 85730; 86850; 86900; 86901; 86920; 87040; 93005; 94640; 94660; 96372; 99285; A9270-GY; J1956; J2370; J2543; J2710; J2930; J3010; Q9967